=== PATIENT | male | born 1965 | race African-American/Black ===

== ENCOUNTER 2018-05-29 16:36 | Emergency (ER) | payer BC, SELFPAY ==
[2018-05-29] MEDS ORDERED: Ketorolac Tromethamine 60 MG/2 ML VIAL ONE (16:49)
[2018-05-29] MEDS ORDERED: Cyclobenzaprine 10 MG TAB ONE (16:49)
== END 2018-05-29 17:01 | disposition home or self-care (01) ==
LOC: BURERS 16:36
DX: S29.012A Strain of muscle and tendon of back wall of thorax, initial encounter (principal); E11.9 Type 2 diabetes mellitus without complications; E78.00 Pure hypercholesterolemia, unspecified; Z79.84 Long term (current) use of oral hypoglycemic drugs; Z79.899 Other long term (current) drug therapy; V43.52XA Car driver injured in collision with other type car in traffic accident, initial encounter
CPT/HCPCS: 96372; J1885